=== PATIENT | male | born 1985 | race African-American/Black ===

== ENCOUNTER 2022-04-06 11:33 | Emergency (ER) | payer MEDICAID ==
[~2022-04-06] VITALS: Ht 175.3 cm; Wt 91.0 kg
[2022-04-06] MEDS ORDERED: KETOROLAC 30MG/ML VIAL IV STA (11:49)
[2022-04-06] MEDS ORDERED: ACETAMINOPHEN 325MG TABLET PO STA (11:49)
[2022-04-06] MEDS ORDERED: MORPHINE SULFATE 4 MG/ML CPJ (NOT FOR IM USE) IV STA (11:49)
[2022-04-06] MEDS ORDERED: ONDANSETRON HCL 4MG/2ML INJ IV STA (11:49)
[2022-04-06] MEDS ORDERED: SODIUM CHLORIDE 0.9% 1,000 ML IV ONE ×2 (12:00→13:00)
[2022-04-06] MEDS ORDERED: DIPHENHYDRAMINE 25MG CAPSULE PO ONE (12:00)
[2022-04-06 12:15] LABS: BASOPHILS % 1.1 % (0.0-2.0); EOSINOPHILS % 3.1 % (0.0-5.0); HEMATOCRIT. 42.7 % (42.0-52.0); HEMOGLOBIN. 14.6 g/dL (14.0-18.0); LYMPHOCYTES % 21.1 % (20.0-50.0); MEAN CORPUSCULAR HEMOGLOBIN 27.6 pg (28.0-32.0); MEAN CORPUSCULAR VOLUME 80.9 fL (80.0-94.0); MEAN PLATELET VOLUME 8.1 fl (7.4-10.4); MONOCYTES % 8.2 % (2.0-8.0); NEUTROPHILS % 66.5 % (40.0-76.0); PLATELET 303 x1000/uL (130-400); RED BLOOD CELL COUNT 5.27 mill/uL (4.7-6.1); RED CELL DISTRIBUTION WIDTH 14.7 % (11.6-14.6)
[2022-04-06 12:21] LABS: CHLORIDE 106 mEq/L (98-107)
[2022-04-06] MEDS ORDERED: MORPHINE SULFATE 4 MG/ML CPJ (NOT FOR IM USE) IV SCH (13:00)
[2022-04-06] MEDS ORDERED: KETOROLAC 15MG/ML VIAL IV SCH (13:00)
[2022-04-06] MEDS ORDERED: IBUP-2029 MT (13:45)
[2022-04-06] MEDS ORDERED: HYDR-4001 MT (13:46)
[2022-04-06 14:06] VITALS: BP 140/71
[2022-04-06 15:12] LABS: CLARITY URINE CLEAR (CLEAR); COLOR URINE YELLOW (YELLOW); KETONES URINE NEGATIVE (NEGATIVE); LEUKOCYTE ESTERASE URINE NEGATIVE (NEGATIVE); NITRITE URINE NEGATIVE (NEGATIVE); OCCULT BLOOD URINE NEGATIVE (NEGATIVE); PH URINE 8.5 (4.5-8.0); PROTEIN URINE NEGATIVE (NEGATIVE); SPECIFIC GRAVITY URINE 1.015 (1.005-1.030); UROBILINOGEN URINE 0.2 E.U./dL (0.2-1.0)
== END 2022-04-06 14:29 ==
LOC: ER 12:04
DX: D57.00 Hb-SS disease with crisis, unspecified (principal); M25.551 Pain in right hip; M25.552 Pain in left hip; I10 Essential (primary) hypertension
CPT/HCPCS: 36415; 71045; 73502; 80053; 81003; 83605; 84484; 85025; 85044; 86850; 86900; 86901; 96361; 96374; 96375; 96376; 99284; J1885; J2270; J2405; J7030; Q0163